=== PATIENT | male | born 1960 | race African-American/Black ===

== ENCOUNTER 2018-01-26 15:29 | Emergency (ER) | payer MEDICAID ==
[~2018-01-26] VITALS: Ht 182.9 cm; Wt 69.1 kg
[2018-01-26 15:31] VITALS: BP 146/88
[2018-01-26] MEDS ORDERED: FLUORESCEIN OPHTHALMIC 1 MG STRIP ONE ×2 (15:49→15:59)
[2018-01-26] MEDS ORDERED: PROPARACAINE OPHTH 0.5%, 15ML ONE ×2 (15:49→15:59)
[2018-01-26] MEDS ORDERED: FLUORESCEIN OPHTHALMIC 1 MG STRIP EACHEYE ONE (16:00)
[2018-01-26] MEDS ORDERED: PROPARACAINE OPHTH 0.5%, 15ML EACHEYE ONE (16:00)
[2018-01-26] MEDS ORDERED: EYE WASH SOLUTION 120ML ONE (16:03)
== END 2018-01-26 16:52 | disposition home or self-care (01) ==
LOC: ED 16:46
DX: T15.12XA Foreign body in conjunctival sac, left eye, initial encounter (principal); K08.89 Other specified disorders of teeth and supporting structures
CPT/HCPCS: 99283

== ENCOUNTER 2018-02-22 23:19 | Emergency (ER) | payer MEDICAID ==
[~2018-02-22] VITALS: Ht 182.9 cm; Wt 69.0 kg
[2018-02-22 23:23] VITALS: BP 131/77
[2018-02-22] MEDS ORDERED: HYDROcodone/APAP 5/325 TABLET PO STA (23:58)
[2018-02-23] MEDS ORDERED: HYDROcodone/APAP 5/325 TABLET ONE (00:04)
[2018-02-23] MEDS ORDERED: LORazepam 1MG TABLET PO ONE (00:30)
[2018-02-23] MEDS ORDERED: LORazepam 1MG TABLET ONE (00:31)
== END 2018-02-23 00:36 | disposition home or self-care (01) ==
LOC: ED 23:48
DX: S00.83XA Contusion of other part of head, initial encounter (principal); K02.9 Dental caries, unspecified; F17.210 Nicotine dependence, cigarettes, uncomplicated; X58.XXXA Exposure to other specified factors, initial encounter; Y93.89 Activity, other specified; Y92.89 Other specified places as the place of occurrence of the external cause; Y99.8 Other external cause status
CPT/HCPCS: 70450; 70486; 99284